=== PATIENT | female | born 1990 | race Caucasian/White ===

== ENCOUNTER 2020-11-13 21:43 | Inpatient (IN) ==
[2020-11-13] MEDS ORDERED: OXYTOCIN 30 UNITS/500 ML BAG IV PRN (22:33)
[2020-11-13 23:06] LABS: Hematocrit (blood only) 40.9 % (37-47); Hemoglobin 13.9 g/dL (12.0-16.0); Mean Corpuscular Hemoglobin 31.4 pg (25-34); Mean Corpuscular Volume 92.3 fL (80-100); Mean Platelet Volume 11.4 fL (7.4-10.4); Platelet Count 164 K/uL (130-400); RDW Coefficient of Variation 13.1 % (11.5-14.5); RDW Standard Deviation 44.1 fL (36.4-46.3); Red Blood Count 4.43 M/uL (4.2-5.4); White Blood Count 19.31 K/uL (4.8-10.8)
--- NOTE | 2020-11-14 00:18 | History & Physical Report ---
Date of Service November 14, 2020 Assessment & Plan (1) Normal labor and delivery: admit, iv, labs, declines arom. plans to try to labor unmedicated. fhts categ 1. anticip . Admission and Anticipated Discharge Date Admission Date: November 13, 2020 History of Present Illness Chief Complaint: labor Primary Care Provider: ALLEGRA Mtz 30yo at 38 6/7wks ega presents to L&D with above cc. Has been having ctx since yesterday but became more regular evening of 11/13/20. No rom, no vb. Called and came for evaluation. Nursing exam on arrival 5cm and regular ctx noted. PNC uncomplicated PNL rh pos, ri, gbs neg, covid neg OBH: g1 GYNH: nl paps no stds Allergies Allergy/AdvReac Type Severity Reaction Status Date / Time cefaclor [From Ceclor] Allergy Unknown Unknown Verified 11/13/20 23:08 Sulfa (Sulfonamide Allergy Unknown Unknown Verified 11/13/20 23:08 Antibiotics) sulfamethoxazole Allergy unknown Verified 11/09/20 11:46 [From Septra] trimethoprim [From Septra] Allergy unknown Verified 11/09/20 11:46 prochlorperazine AdvReac Severe ocular Verified 11/09/20 11:46 [From Compazine] spasms, tardive dyskinesia Home Medications Medication Instructions Recorded Confirmed Type prenat.vits,osman,xnf-[id number] 1 tab PO DAILY 01/05/20 11/13/20 History Patient History Medical History (Updated 11/14/20 @ 00:17 by Velma Dupree MD, FACOG) No pertinent past medical history Surgical History H/O wrist surgery History of repair of congenital cleft palate History of wisdom tooth extraction Family History Father Dyslipidemia Hypertension Musculoskeletal disorder Mother Thyroid disorder Grandmother (Paternal) Cancer Social History (Updated 04/07/20 @ 13:26 by Esther Wright) Smoking Status: Never smoker Hx Alcohol Use: No Hx Substance Use: No Preferred Language: Sierra Leonean Communication Ability: Effective Dress Cap Maker Required: No Beliefs That Will Affect Care: None marital status: spouse marital status details: Vikas (30) [phone] Current Living Situation: Spouse Current Living Situation Comment: townhouse with 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[employer], 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 Other Information That Helps Us Care for You: No Feels Safe at Home: Yes Safety Concerns: Feels Safe At This Time Dental Care, Regularly: Yes Physical Activity Frequency: 3-4 Times per Week Seatbelt Use: always Sunscreen Use: Yes Assistive Devices: None Physical Exam Constitutional: WD/WN, vitals as above Respiratory: normal respiratory effort, lungs clear to auscultation Cardiovascular: Rate/Rhythm: regular rate and regular rhythm Gastrointestinal (Abdomen): soft gravid nt Musculoskeletal: no edema nontender calves Neurologic: grossly normal Psychiatric: A+Ox3, euthymic affect Genitourinary: Manual OB Exam: + cervical dilation (5cm bulging membranes per nurse) OB Exam Monitor Tracing: + external FHT monitor used (145 mod variability), + external uterine monitor used (q2-4), + category I and + normal FHT variability Results & Data ([facility]) Vital Signs (Past 12 Hours) Vital Signs Temp Pulse Resp BP 11/13/20 23:11 96 H 132/70 11/13/20 22:05 97.9 F 18 11/13/20 22:01 97.9 F 98 H 18 131/85 Coding Level of Care Code None Diagnoses Normal labor and delivery O80
--- NOTE | 2020-11-14 04:06 | Labor Progress Brief Note ---
Date of Service November 14, 2020 Subjective Reason For Note: Routine Evaluation desires arom Assessment & Plan (1) Normal labor and delivery: good cx change. fhts categ 1. reviewed plan again, will need to recline for delivery of head and shoulder. Admission and Anticipated Discharge Date Admission Date: November 13, 2020 Physical Exam Constitutional: WD/WN, vitals as above Genitourinary: Manual OB Exam: + cervical dilation 8 cm, + cervical effacement 100%, + station 0 and + amniotic fluid (AROM) meconium OB Exam Monitor Tracing: + external FHT monitor used (140 mod variability), + external uterine monitor used (q6), + category I and + normal FHT variability Results & Data ([facility]) Vital Signs (Past 12 Hours) Vital Signs Temp Pulse Resp BP 11/14/20 02:00 98.2 F 18 11/14/20 00:46 18 11/14/20 00:45 92 H 137/71 11/13/20 23:11 96 H 132/70 11/13/20 22:05 97.9 F 18 11/13/20 22:01 97.9 F 98 H 18 131/85 Coding Level of Care Code None Diagnoses Normal labor and delivery O80
--- NOTE | 2020-11-14 08:09 | Labor Progress Brief Note ---
Date of Service November 14, 2020 Subjective Reason For Note: Routine Evaluation breathing with ctx. in br with nose bleed. Assessment & Plan (1) Normal labor and delivery: no significant change. will need to consider pitocin. fhts categ 1. Admission and Anticipated Discharge Date Admission Date: November 13, 2020 Physical Exam Constitutional: WD/WN, vitals as above Genitourinary: Manual OB Exam: + cervical dilation (8), + cervical effacement 100% and + station 0 OB Exam Monitor Tracing: + external FHT monitor used, + external uterine monitor used (q 3), + category I and + normal FHT variability Results & Data ([facility]) Vital Signs (Past 12 Hours) Vital Signs Temp Pulse Resp BP 11/14/20 07:53 98.2 F 91 H 16 123/61 11/14/20 05:56 98.2 F 99 H 18 135/70 11/14/20 04:03 113 H 131/68 11/14/20 04:02 98.2 F 11/14/20 02:00 98.2 F 18 11/14/20 00:46 18 11/14/20 00:45 92 H 137/71 11/13/20 23:11 96 H 132/70 11/13/20 22:05 97.9 F 18 11/13/20 22:01 97.9 F 98 H 18 131/85 Coding Level of Care Code None Diagnoses Normal labor and delivery O80
--- NOTE | 2020-11-14 09:06 | Labor Progress Brief Note ---
Date of Service November 14, 2020 Subjective Feeling contractions, breathing through them. FHT Cat 1 [place]co Q 4-5 Reviewed plan, questions answered. Continue labor. Assessment & Plan Admission and Anticipated Discharge Date Admission Date: November 13, 2020 Results & Data ([facility]) Vital Signs (Past 12 Hours) Vital Signs Temp Pulse Resp BP 11/14/20 07:53 36.8 C 91 H 16 123/61 11/14/20 05:56 36.8 C 99 H 18 135/70 11/14/20 04:03 113 H 131/68 11/14/20 04:02 36.8 C 11/14/20 02:00 36.8 C 18 11/14/20 00:46 18 11/14/20 00:45 92 H 137/71 11/13/20 23:11 96 H 132/70 11/13/20 22:05 36.6 C 18 11/13/20 22:01 36.6 C 98 H 18 131/85 Coding Level of Care Code None
[2020-11-14] MEDS: LACTATED RINGER'S 1,000 ML IV PRN ×2 (11:14→13:18)
--- NOTE | 2020-11-14 11:16 | Labor Progress Brief Note ---
Date of Service November 14, 2020 Subjective Uncomfortable, asking for epidural. Feeling pain with contractions. FHT Cat 1 Brinson Q 4 SVE 9/100/+1 Will get epidural, will potentially need pitocin if ctx space further after epidural. Assessment & Plan Admission and Anticipated Discharge Date Admission Date: November 13, 2020 Results & Data ([facility]) Vital Signs (Past 12 Hours) Vital Signs Temp Pulse Resp BP 11/14/20 10:23 36.8 C 101 H 20 127/63 11/14/20 07:53 36.8 C 91 H 16 123/61 11/14/20 05:56 36.8 C 99 H 18 135/70 11/14/20 04:03 113 H 131/68 11/14/20 04:02 36.8 C 11/14/20 02:00 36.8 C 18 11/14/20 00:46 18 11/14/20 00:45 92 H 137/71 Coding Level of Care Code None
[2020-11-14] MEDS ORDERED: SODIUM CHLORIDE 0.9% INJ 10 ML VIAL ONE (11:19)
[2020-11-14] MEDS ORDERED: BUPIVACAINE 0.25% 30 ML VIAL ONE (11:19)
[2020-11-14] MEDS ORDERED: ePHEDrine sulfate 50 MG/ML AMP ONE (11:19)
[2020-11-14] MEDS ORDERED: fentaNYL citrate 100 MCG/2 ML VIAL ONE (11:20)
[2020-11-14] MEDS ORDERED: fentaNYL 2MCG/ML ROPIVACAINE 1.25MG/ML 100 ML BAG EPI ONE (11:20)
[2020-11-14] MEDS ORDERED: diphenhydrAMINE 50 MG/ML VIAL IV PRN (12:11)
[2020-11-14] MEDS ORDERED: NALOXONE HCL 0.4 MG/1 ML VIAL/CARP IV PRN (12:11)
[2020-11-14] MEDS ORDERED: NALOXONE HCL 1 MG in SODIUM CHLORIDE 0.9% 1000ML 1,000 ML IV PRN (12:11)
[2020-11-14] MEDS ORDERED: fentaNYL 2MCG/ML ROPIVACAINE 1.25MG/ML 100 ML BAG EPI PRN (12:11)
[2020-11-14] MEDS ORDERED: ePHEDrine sulfate 50 MG/ML AMP IV PRN (12:11)
[2020-11-14] MEDS ORDERED: ONDANSETRON INJ 2 MG/ML 2 ML VIAL IV PRN (12:11)
--- NOTE | 2020-11-14 12:13 | Anesthesiology Consultation ---
Date of Service November 14, 2020 Assessment & Plan (1) Encounter for pre-operative examination: Chart Review Chart Review: Acceptable Risk for Surgery and Patient NOT seen in Pre Admission Testing Consults Requested none ASA ASA2 Proposed Anesthesia Anesthesia Type: CSE Risk / Benefits Reviewed With: PT / POA / Parent / Guardian, Accepts Plan and Informed Consent Obtained History Height/Weight Height: 5 ft 2 in Weight: 78.471 kg Allergies Allergy/AdvReac Type Severity Reaction Status Date / Time cefaclor [From Ceclor] Allergy Unknown Unknown Verified 11/13/20 23:08 Sulfa (Sulfonamide Allergy Unknown Unknown Verified 11/13/20 23:08 Antibiotics) sulfamethoxazole Allergy unknown Verified 11/09/20 11:46 [From Septra] trimethoprim [From Septra] Allergy unknown Verified 11/09/20 11:46 prochlorperazine AdvReac Severe ocular Verified 11/09/20 11:46 [From Compazine] spasms, tardive dyskinesia Medications Home Medications Medication Instructions Recorded Confirmed Last Taken prenat.vits,osman,ndk-dmui-mziwv 1 tab PO DAILY 01/05/20 11/13/20 11/13/20 Active Medications Generic Name Dose Route Start Last Admin Trade Name Freq PRN Reason Stop Dose Admin Lactated Ringer's 1,000 mls @ 125 mls/hr 11/13/20 22:33 11/14/20 11:14 Lr IV 11/15/20 22:32 999 mls/hr .Q8H PRN Administration L&D Protocol Protocol NPO Date Last Intake of Fluids: 11/14/20 Time Last Intake of Fluids: 10:00 Date Last Intake of Solids: 11/13/20 Time Last Intake of Solids: 12:00 Past Medical History Medical History No pertinent past medical history Exercise / Class Metabolic Activity II 4-5 Yardwork/Stairs/Walk up hill Past Family History Family History Father Dyslipidemia Hypertension Musculoskeletal disorder Mother Thyroid disorder Grandmother (Paternal) Cancer Past Surgical History Surgical History H/O wrist surgery History of repair of congenital cleft palate History of wisdom tooth extraction Past Anesthesia History No Hx of Anesthesia Complications and No Family Hx of Anesthesia Complications History of PONV No Hx of PONV and No Hx of Motion Sickness Social History Smoking Status: Never smoker Hx Alcohol Use: No Hx Substance Use: No Physical Exam Vital Signs Last Vital Signs Temp 36.8 C 11/14/20 10:23 Pulse 105 H 11/14/20 12:09 Resp 20 11/14/20 10:23 BP 112/57 L 11/14/20 12:09 Pulse Ox 99 11/14/20 12:05 ENMT Mouth: no dentition abnormality Thyromental Distance: > or= 3.5 Finger Breadths Mallampati Class: II Neck normal visual inspection Respiratory normal respiratory effort Auscultation: lungs clear to auscultation bilaterally Cardiovascular Rate/Rhythm: regular rate and regular rhythm Psychiatric Orientation: alert Testing Laboratory Results 11/13/20 22:45
[2020-11-14] MEDS ORDERED: OXYTOCIN 30 UNITS/500 ML BAG IV PRN ×2 (12:31→16:09)
--- NOTE | 2020-11-14 13:39 | Labor Progress Brief Note ---
Date of Service November 14, 2020 Subjective Comfortable, now sleeping with epidural. FHT Cat 1 Ferney Q 2 Continue labor. Assessment & Plan Admission and Anticipated Discharge Date Admission Date: November 13, 2020 Results & Data ([facility]) Vital Signs (Past 12 Hours) Vital Signs Temp Pulse Resp BP Pulse Ox 11/14/20 13:35 88 97 11/14/20 13:30 85 97 11/14/20 13:29 88 102/56 L 11/14/20 13:25 88 97 11/14/20 13:20 89 98 11/14/20 13:15 83 16 100/56 L 98 11/14/20 13:10 85 98 11/14/20 13:05 85 98 11/14/20 13:00 80 98 11/14/20 12:59 88 106/54 L 11/14/20 12:55 88 99 11/14/20 12:50 87 99 11/14/20 12:45 88 16 113/55 L 98 11/14/20 12:40 88 98 11/14/20 12:35 88 98 11/14/20 12:31 89 110/61 11/14/20 12:30 89 99 11/14/20 12:25 93 H 99 11/14/20 12:20 100 H 98 11/14/20 12:15 108 H 98 11/14/20 12:13 37 C 90 20 101/53 L 11/14/20 12:11 95 H 117/56 L 11/14/20 12:10 98 H 98 11/14/20 12:09 105 H 112/57 L 11/14/20 12:07 117 H 111/55 L 11/14/20 12:05 95 H 117/57 L 99 11/14/20 12:03 101 H 126/57 L 11/14/20 12:01 82 123/64 11/14/20 12:00 90 98 11/14/20 11:59 105 H 136/73 11/14/20 11:56 112 H 137/77 11/14/20 11:55 103 H 99 11/14/20 10:23 36.8 C 101 H 20 127/63 11/14/20 07:53 36.8 C 91 H 16 123/61 11/14/20 05:56 36.8 C 99 H 18 135/70 11/14/20 04:03 113 H 131/68 11/14/20 04:02 36.8 C 11/14/20 02:00 36.8 C 18 Coding Level of Care Code None
--- NOTE | 2020-11-14 15:49 | Delivery Summary ---
Vaginal Delivery Summary Date of Service November 14, 2020 Vaginal Delivery Summary and 1st Degree LAC Vaginal Delivery Summary: Pre-delivery diagnoses: 30yo @ 38 6/7, spontaneous labor Post-delivery diagnoses: same Procedure: spontaneous vaginal delivery, repair of 1st degree perineal laceration Surgeon: Janey Almodovar DO Complications: none Findings: Viable male . Apgars: 8/9. Weight pending, please see nursery records. Estimated blood loss: 300ml Description of delivery: The patient progressed to complete with epidural anesthesia. She then began to push. She spontaneously vaginally delivered a viable from the cephalic presentation. The head delivered in JASMIN position. No nuchal. The anterior shoulder delivered, followed by the posterior shoulder, followed by the body. The baby was placed on mother's abdomen and a spontaneous cry was heard. Delayed cord clamping was employed, and the cord was doubly clamped and cut. Cord blood was obtained. The placenta was delivered spontaneously intact with a 3-vessel cord. The uterus and vagina were swept of clots and debris. IV pitocin was given. The uterus became firm. The cervix, vagina, and perineum were inspected and a 1st degree perineal laceration noted and repaired with 3-0 Vicryl in standard fashion. Excellent hemostasis was observed. The mother and baby are recovering in stable and good condition in the room. Sponge and instrument counts were correct x 2. Janey Almodovar DO [facility] Vaginal Delivery Charge Vaginal Delivery Codes: 83036 global code for the antepartum, delivery, and p ost- Delivery Type Details: and 1st Degree LAC
[2020-11-14] MEDS ORDERED: ACETAMINOPHEN 325 MG TAB PO PRN (16:09)
[2020-11-14] MEDS ORDERED: SUPERCREAM 0.870% 15 GM JAR EXT PRN (16:09)
[2020-11-14] MEDS ORDERED: HYDROCORTISONE ACETATE 25 MG SUPP PR PRN (16:09)
[2020-11-14] MEDS ORDERED: bisacodyL 10 MG SUPP PR PRN (16:09)
[2020-11-14] MEDS ORDERED: DIPHTHERIA/TETANUS/PERTUSSIS 0.5 ML SYR/VIAL IM ONE (16:09)
[2020-11-14] MEDS ORDERED: BENZOCAINE 20% AER SPR 82.5 GM CAN EXT PRN (16:09)
[2020-11-14] MEDS ORDERED: oxyCODONE/ACETAMINOPHEN 5mg/325mg TAB PO PRN (16:09)
--- NOTE | 2020-11-14 17:10 | Anesthesia Procedure Note ---
Date of Service November 14, 2020 Anesthesia Post Epidural Note Vital Signs Vital Signs: Temp Pulse Resp BP Pulse Ox 36.6 C 130 H 16 133/72 98 11/14/20 15:44 11/14/20 16:59 11/14/20 16:45 11/14/20 16:59 11/14/20 15:40 Pain Intensity Abdomen: Pain Intensity: 0 Notes Mental Status: alert / awake / arousable Nausea / Vomiting: adequately controlled Pain: adequately controlled Airway Patency, RR, SpO2: stable & adequate BP & HR: stable & adequate Hydration State: stable & adequate Neuraxial Anesthesia: was administered and sensory block is resolving Anesthetic Complications: no major complications apparent and Pt Satisfied with anesthetic care Epidural: Removed without complications and With tip intact
[2020-11-14] MEDS: IBUPROFEN 600 MG TAB PO PRN (18:41)
[2020-11-14] MEDS: DOCUSATE SODIUM 100 MG CAP PO SCH (21:19)
[2020-11-15] MEDS: IBUPROFEN 600 MG TAB PO PRN ×5 (02:48→20:53)
[2020-11-15 06:27] LABS: Hematocrit (blood only) 36.8 % (37-47); Hemoglobin 12.8 g/dL (12.0-16.0)
--- NOTE | 2020-11-15 08:18 | Obstetrical Progress Note ---
Date of Service <Adelina Wheeler DO - Last Filed: 11/15/20 08:18> November 15, 2020 Assessment & Plan <Adelina Wheeler DO - Last Filed: 11/15/20 08:18> (1) state: PPD #1 - PNL: Rh pos, RI, GBS neg, COVID neg - Feels well today. Eating well, voiding well, ambulating well. - Pain well controlled with ibuprofen 600mg Q4H PRN - Routine care -- OOB, ambulation, diet progression as tolerated - After discharge will have 6 week follow-up with Dr. Almodovar. Subjective <Adelina Wheeler DO - Last Filed: 11/15/20 08:18> Kayla Winston is a 30 y/o female who is PPD #1 following spontaneous vaginal delivery at 38+6 weeks. She reports feeling well overall this morning. Mild abdominal cramping and 4/10 pain well managed on analgesics. Voiding wihtout dysuria. Tolerating meals overnight without difficulty, nausea, or vomiting. Patient has been able to ambulate some. She is passing gas. Has persistent lochia with some improvement this morning. Currently . Review of Systems Denies fever or chills. Denies shortness of breath or cough. Denies chest pain. Denies breast pain. Denies dysuria. Denies leg pain or leg swelling. Denies headache or changes in vision. Physical Exam <Adelina Wheeler DO - Last Filed: 11/15/20 08:18> General: Alert, oriented. No acute distress. Cardiac: Regular rate and rhythm. No murmurs. Respiratory: Clear to auscultation bilaterally a/p, no wheezes/rales/rhonchi. No increased work of breathing. Symmetrical chest rise. No respiratory distress. Abdomen: Soft, nontender, nondistended. Bowel sounds present. Uterus: Uterine fundus firm, palpable at umbilicus. Lower Extremities: No lower extremity edema or swelling. No deep calf pain. Liana's negative bilaterally. Results & Data ([facility]) <Adelina Wheeler DO - Last Filed: 11/15/20 08:18> Vital Signs (Past 12 Hours) Vital Signs Temp Pulse Resp BP 11/15/20 04:40 36.7 C 97 H 20 116/73 11/14/20 23:05 37.1 C 106 H 20 115/75 11/14/20 20:40 37.2 C 102 H 18 131/82 Laboratory Results 11/15/20 Range/Units 06:05 Hgb 12.8 (12.0-16.0) g/dL Hct 36.8 L (37-47) % <Janey Almodovar DO - Last Filed: 11/15/20 08:20> Co-Signing Physician Notes Resident Physician Supervision Note: I was present with Dr. Wheeler during the history and exam. I discussed the case with the resident and agree with the findings and plan as documented in the note. Any exceptions or clarifications are listed here: PPD#1 doing well, no concerns. Documented By: Janey Almodovar DO Resident Activity Tracking <Adelina Wheeler DO - Last Filed: 11/15/20 08:18> Resident Involvement: Resident Care Provided Care Provided: OB Delivery
[2020-11-15] MEDS: DOCUSATE SODIUM 100 MG CAP PO SCH ×2 (08:47→20:53)
[2020-11-15] MEDS: PRENATAL VITAMIN 1 TAB PO SCH (08:47)
[2020-11-15] MEDS ORDERED: bisacodyL 5 MG TABEC PO SCH (20:00)
[2020-11-16] MEDS: IBUPROFEN 600 MG TAB PO PRN ×3 (00:50→08:36)
--- NOTE | 2020-11-16 07:29 | Obstetrical Progress Note ---
Date of Service <Adelina Wheeler DO - Last Filed: 11/16/20 07:29> November 16, 2020 Assessment & Plan <Adelina Wheeler DO - Last Filed: 11/16/20 07:29> (1) state: PPD #2 - PNL: Rh pos, RI, GBS neg, COVID neg - Feels well today. Eating well, voiding well, ambulating well. - Pain well controlled with ibuprofen 600mg Q4H PRN - Routine care -- OOB, ambulation, diet progression as tolerated - After discharge will have 6 week follow-up with Dr. Almodovar. - Plan for d/c home today. Subjective <Adelina Wheeler DO - Last Filed: 11/16/20 07:29> Kayla Winston is a 30 y/o female who is PPD #2 following spontaneous vaginal delivery at 38+6 weeks. She reports feeling well overall this morning. Minimal abdominal cramping and 0/10 pain well managed on analgesics. Voiding without dysuria. Tolerating meals overnight without difficulty, nausea, or vomiting. Patient has been able to ambulate some. She is passing gas. Has persis tent lochia with some improvement this morning. Currently . Review of Systems Denies fever or chills. Denies shortness of breath or cough. Denies chest pain. Denies breast pain. Denies dysuria. Denies leg pain or leg swelling. Denies headache or changes in vision. Physical Exam <Adelina Wheeler DO - Last Filed: 11/16/20 07:29> General: Alert, oriented. No acute distress. Cardiac: Regular rate and rhythm. No murmurs. Respiratory: Clear to auscultation bilaterally a/p, no wheezes/rales/rhonchi. No increased work of breathing. Symmetrical chest rise. No respiratory distress. Abdomen: Soft, nontender, nondistended. Bowel sounds present. Uterus: Uterine fundus firm, palpable at umbilicus. Lower Extremities: No lower extremity edema or swelling. No deep calf pain. Liana's negative bilaterally. <Juani Dee MD, FACOG - Last Filed: 11/16/20 09:42> Co-Signing Physician Notes Resident Physician Supervision Note: I interviewed and examined the patient. Discussed with Dr. Wheeler and agree with findings and plan as documented in the note. Any exceptions or clarifications are listed here: [None] Documented By: Juani Dee MD, FACOG Resident Activity Tracking <Adelina Wheeler, DO - Last Filed: 11/16/20 07:29> Resident Involvement: Resident Care Provided Care Provided: OB Delivery
[2020-11-16] MEDS: DOCUSATE SODIUM 100 MG CAP PO SCH (08:36)
[2020-11-16] MEDS: PRENATAL VITAMIN 1 TAB PO SCH (08:36)
== END 2020-11-16 12:05 | disposition home or self-care (01) | DRG 807 ==
LOC: OPB 21:43 → 4S1 21:44 → 4S2 11-14 19:18

== ENCOUNTER 2022-07-11 10:29 | Inpatient (IN) ==
[2022-07-11] MEDS ORDERED: OXYTOCIN 30 UNITS/500 ML BAG IV PRN ×2 (10:47→13:54)
[2022-07-11] MEDS ORDERED: LIDOCAINE 1% LOCAL 20 ML VIAL INFIL PRN (10:47)
[2022-07-11] MEDS ORDERED: PENICILLIN G POTASSIUM 6 MU in DEXTROSE 5% 250 ML IV STA (10:52)
[2022-07-11] MEDS: LACTATED RINGER'S 1,000 ML IV PRN ×2 (10:53→11:51)
--- NOTE | 2022-07-11 10:53 | History & Physical Report ---
Date of Service July 11, 2022 Assessment & Plan (1) : (2) GBS (group B Streptococcus carrier), +RV culture, currently : Plan 32 yo at 39 5/7 wga presents in labor, suspected SROM VSS Fetus cat 1 Labor - manage expectantly GBS+, start pcn. ceclor allergy from childhood but reports having tolerated amoxicillin in past Desires epidural History of Present Illness Chief Complaint: labor, leaking Primary Care Provider: ALLEGRA Mtz 32 yo at 39 5/7 wga presents w/ ctx increasing in frequency and intensity since 4am, noq 2-3. Had big gush of fluid and still leaking since PNI: Mild asthma GBS+ Past [employer] Hx: G1 2020 at 38 wks G2 current irreg cycles no hx STIs 12/2020 neg cyto Allergies Allergy/AdvReac Type Severity Reaction Status Date / Time cefaclor [From Ceclor] Allergy Unknown Unknown Verified 07/05/22 06:05 Sulfa (Sulfonamide Allergy Unknown Unknown Verified 07/05/22 06:05 Antibiotics) sulfamethoxazole Allergy unknown Verified 07/05/22 06:05 [From Septra] trimethoprim [From Septra] Allergy unknown Verified 07/05/22 06:05 prochlorperazine AdvReac Severe ocular Verified 07/05/22 06:05 [From Compazine] spasms, tardive dyskinesia Home Medications Medication Instructions Recorded Confirmed Type prenat.vits,osman,fkq-fgfi-tlypx 1 tab PO DAILY 11/26/21 07/05/22 History albuterol sulfate 2.5 mg/3 mL 2.5 mg (3 mL) inhalation QID PRN 04/24/22 07/05/22 Rx (0.083 %) solution for nebulization shortness of breath or wheezing #180 mL nebulizer accessories #1 ea 04/24/22 07/05/22 Rx Flovent HFA 110 mcg/actuation 1 puff inhalation BID #12 grams 05/10/22 07/05/22 Rx aerosol inhaler (fluticasone propionate) albuterol sulfate 90 mcg/actuation 1 inh inhalation QID #6.7 grams 05/10/22 07/05/22 Rx aerosol inhaler Patient History Medical History No pertinent past medical history Surgical History H/O wrist surgery History of repair of congenital cleft palate History of wisdom tooth extraction Family History Father Dyslipidemia Hypertension Musculoskeletal disorder Mother Thyroid disorder Grandmother (Paternal) Cancer Social History Smoking Status: Never smoker Hx Alcohol Use: No Hx Substance Use: No Preferred Language: Slovenian Communication Ability: Effective Fulfillment Mail Clerk Required: No Beliefs That Will Affect Care: None marital status: spouse marital status details: Vikas (32) [phone] Current Living Situation: Spouse Current Living Situation Comment: lives with spouse and son, 1 dog. 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 Feels Safe at Home: Yes Dental Care, Regularly: Yes Physical Activity Frequency: 3-4 Times per Week Seatbelt Use: always Sunscreen Use: Yes Assistive Devices: None Physical Exam Genitourinary: OB Exam Abdomen: + vertex Manual OB Exam: + cervical dilation (4-5), + cervical effacement 80% and + station -2 OB Exam Monitor Tracing: + external FHT monitor used, + external uterine monitor used (q5) and + category I (130/mod/+accel/-decel) No membranes palpated at this time Results & Data ([facility]) Vital Signs (Past 12 Hours) Vital Signs Pulse BP 07/11/22 10:40 62 129/86 Laboratory Results OB Labs: Blood Type A Positive 12/03/21 Antibody Screen NEGATIVE 12/03/21 Hemoglobin 11.7 g/dl (12.0-16.0) L 04/17/22 Hematocrit 35.0 % (34.1-44.9) 04/17/22 Mean Corpuscular Volume 89.2 fL (80-100) 12/03/21 Platelet Count 249 K/uL (130-400) 12/03/21 Rubella IgG Antibody Immune (Immune) 12/03/21 Rapid Plasma Reagin Nonreactive (Nonreactive) 12/03/21 Hepatitis B Surface Antigen Neg (Neg) 04/18/20 Hepatitis B Surface Antigen. NON-REACTIVE (NON-REACTIVE) 12/03/21 Hepatitis C Antibody (EIA) NON-REACTIVE (NON-REACTIVE) 12/03/21 HIV (1&2) Ab and P24 Ag, 4th Gener Neg (Neg) 04/18/20 HIV (1&2) Ag and Ab Confirmation NON-REACTIVE (NON-REACTIVE) 12/03/21 Glucose 1 Hour 50 gm Load 117 mg/dl (70-130) 04/17/22 OB Optional Labs: Chlamydia trachomatis RNA NOT DETECTED (NOT DETECTED) 12/03/21 Neisseria gonorrhoeae RNA NOT DETECTED (NOT DETECTED) 12/03/21 Labs Reviewed: CF/SMA negative in prior . (05/03/20) low risk cfdna Hep C - nonreactive 12/03/21 Hep B - nonreactive 12/03/21 HIV - nonreactive 12/03/21 GBS+ Diagnostic Findings ant plac Coding Level of Care Code None Diagnoses Z34.90 GBS (group B Streptococcus carrier), +RV culture, currently O99.820
[2022-07-11] MEDS ORDERED: ePHEDrine sulfate 50 MG/ML AMP ONE (11:27)
[2022-07-11] MEDS ORDERED: SODIUM CHLORIDE 0.9% INJ 10 ML VIAL ONE (11:27)
[2022-07-11] MEDS ORDERED: fentaNYL 2MCG/ML ROPIVACAINE 1.25MG/ML 100 ML BAG EPI ONE (11:27)
[2022-07-11] MEDS ORDERED: BUPIVACAINE 0.25% 30 ML VIAL ONE (11:27)
[2022-07-11] MEDS ORDERED: LIDOCAINE 2%/EPINEPHRINE 1:200,000 20 ML SDV ONE (11:27)
[2022-07-11] MEDS ORDERED: fentaNYL citrate 100 MCG/2 ML VIAL ONE (11:27)
[2022-07-11 11:40] LABS: Hematocrit (blood only) 39.9 % (34.1-44.9); Hemoglobin 13.8 g/dl (12.0-16.0); Mean Corpuscular Hemoglobin 31.9 pg (25.0-34.0); Mean Corpuscular Hgb Conc 34.6 g/dL (32.0-36.0); Mean Corpuscular Volume 92.4 fL (80.0-100.0); Mean Platelet Volume 10.9 fL (9.4-12.3); Platelet Count 158 K/uL (130-400); RDW Coefficient of Variation 12.9 % (11.5-14.5); RDW Standard Deviation 43.8 fL (36.4-46.3); Red Blood Count 4.32 M/uL (3.93-5.22); White Blood Count 13.53 K/ul (4.8-10.8)
[2022-07-11] MEDS ORDERED: NALBUPHINE HCL INJ 10 MG/ML AMP IV PRN (11:52)
[2022-07-11] MEDS ORDERED: NALOXONE HCL 0.4 MG/1 ML VIAL/CARP IV PRN (11:52)
[2022-07-11] MEDS ORDERED: NALOXONE HCL 1 MG in SODIUM CHLORIDE 0.9% 1000ML 1,000 ML IV PRN (11:52)
[2022-07-11] MEDS ORDERED: fentaNYL 2MCG/ML ROPIVACAINE 1.25MG/ML 100 ML BAG EPI PRN (11:52)
[2022-07-11] MEDS ORDERED: ONDANSETRON INJ 2 MG/ML 2 ML VIAL IV PRN (11:52)
[2022-07-11] MEDS ORDERED: ePHEDrine sulfate 50 MG/ML AMP IV PRN (11:52)
[2022-07-11] MEDS ORDERED: diphenhydrAMINE 50 MG/ML VIAL IV PRN (11:52)
--- NOTE | 2022-07-11 11:55 | Anesthesiology Consultation ---
Date of Service July 11, 2022 Assessment & Plan Chart Review Chart Review: Patient NOT seen in Pre Admission Testing and Acceptable Risk for Labor Epidural Consults Requested none ASA ASA2 Proposed Anesthesia Anesthesia Type: Labor Epidural and CSE Risk / Benefits Reviewed With: PT / POA / Parent / Guardian, Accepts Plan and Informed Consent Obtained History Height/Weight Height: 5 ft 2 in Weight: 78.018 kg Allergies Allergy/AdvReac Type Severity Reaction Status Date / Time cefaclor [From Ceclor] Allergy Unknown Unknown Verified 07/05/22 06:05 Sulfa (Sulfonamide Allergy Unknown Unknown Verified 07/05/22 06:05 Antibiotics) sulfamethoxazole Allergy unknown Verified 07/05/22 06:05 [From Septra] trimethoprim [From Septra] Allergy unknown Verified 07/05/22 06:05 prochlorperazine AdvReac Severe ocular Verified 07/05/22 06:05 [From Compazine] spasms, tardive dyskinesia Medications Home Medications Medication Instructions Recorded Confirmed Last Taken prenat.vits,osman,rig-azsj-ufzwe 1 tab PO DAILY 11/26/21 07/05/22 Unknown albuterol sulfate 2.5 mg/3 mL 2.5 mg (3 mL) inhalation QID PRN 04/24/22 07/05/22 Unknown (0.083 %) solution for nebulization shortness of breath or wheezing #180 mL nebulizer accessories #1 ea 04/24/22 07/05/22 Unknown Flovent HFA 110 mcg/actuation 1 puff inhalation BID #12 grams 05/10/22 07/05/22 Unknown aerosol inhaler (fluticasone propionate) albuterol sulfate 90 mcg/actuation 1 inh inhalation QID #6.7 grams 05/10/22 07/05/22 Unknown aerosol inhaler Active Medications Generic Name Dose Route Start Last Admin Trade Name Freq PRN Reason Stop Dose Admin Lactated Ringer's 1,000 mls @ 125 mls/hr 07/11/22 10:47 07/11/22 11:51 Lr IV 07/13/22 10:46 125 mls/hr .Q8H PRN Administration L&D Protocol Protocol NPO Date Last Intake of Fluids: 07/11/22 Time Last Intake of Fluids: 10:00 Date Last Intake of Solids: 07/11/22 Time Last Intake of Solids: 07:00 Past Medical History Medical History Reactive airway disease since having Covid 19 Exercise / Class Metabolic Activity II 4-5 Yardwork/Stairs/Walk up hill Past Family History Family History Father Dyslipidemia Hypertension Musculoskeletal disorder Mother Thyroid disorder Grandmother (Paternal) Cancer Past Surgical History Surgical History H/O wrist surgery History of repair of congenital cleft palate History of wisdom tooth extraction Past Anesthesia History No Hx of Anesthesia Complications and No Family Hx of Anesthesia Complications History of PONV No Hx of PONV and No Hx of Motion Sickness Social History Smoking Status: Never smoker Hx Alcohol Use: No Hx Substance Use: No Review of Systems no chest pain or sob Physical Exam Vital Signs Last Vital Signs Temp 36.4 C L 07/11/22 10:37 Pulse 82 07/11/22 11:50 Resp 20 07/11/22 10:37 BP 129/86 07/11/22 10:40 Pulse Ox 98 07/11/22 11:50 ENMT Mouth: no TMJ abnormality Thyromental Distance: > or= 3.5 Finger Breadths Mallampati Class: II Neck normal visual inspection Respiratory normal respiratory effort Auscultation: lungs clear to auscultation bilaterally Cardiovascular Rate/Rhythm: regular rate and regular rhythm Musculoskeletal Spine: normal cervical ROM Neurologic moves all extremities Psychiatric Orientation: alert and oriented x 3 Testing Laboratory Results 07/11/22 11:22
--- NOTE | 2022-07-11 13:23 | Delivery Summary ---
Vaginal Delivery Summary Date of Service July 11, 2022 Vaginal Delivery Summary [facility] PREOPERATIVE DIAGNOSIS: 1. Single intrauterine at 39 5/7 wga 2. Labor 3. GBS+ POSTOPERATIVE DIAGNOSIS: 1. Single intrauterine at 39 5/7 wga 2. Labor 3. GBS+ 4. Delivered PROCEDURE: 1. Normal spontaneous vaginal delivery. SURGEON: Rimma Elliott MD ANESTHESIA: Epidural. ESTIMATED BLOOD LOSS: 300 mL FLUIDS: Continuous LR. URINE OUTPUT: None. COMPLICATIONS: None. CONDITION: Stable. INDICATIONS: 32 you at 39 5/7 wga presented with contractions increasing in frequency and intensity and SROM. She was started on penicillin for GBS ppx and received an epidural for pain control. She progressed spontaneously to complete and desired to push. FINDINGS: A viable female infant, weight pending with Apgars of 8 and 9 at 1 and 5 minutes respectively. SPECIMEN: Cord blood OPERATIVE REPORT: The patient progressed to 10 cm, 100% effaced and +2 station, pushed over intact perineum with anesthesia to deliver a viable female infant, weight and Apgars as above. Head of delivered in JASMIN position. No nuchal cord was present. Body and shoulders were delivered without difficulty. was delivered to maternal abdomen and nursing staff. Delayed cord clamping was performed for 60 seconds. Cord was clamped and cut. Cord blood was obtained. Placenta delivered spontaneously intact with 3-vessel cord. IV oxytocin and fundal massage were given for excellent hemostasis. Vagina, cervix, perineum, and placenta were inspected. No lacerations were noted. Sponge and needle counts correct x2. No sponges were left behind. Mother and stable in immediate period. [facility] [place] Vaginal Delivery Charge Vaginal Delivery Codes: 91538 global code for the antepartum, delivery, and post- Delivery Type Details: [facility]
[2022-07-11] MEDS ORDERED: HYDROCORTISONE ACETATE 25 MG SUPP PR PRN (13:54)
[2022-07-11] MEDS ORDERED: ACETAMINOPHEN 325 MG TAB PO PRN (13:54)
[2022-07-11] MEDS ORDERED: BENZOCAINE 20% AER SPR 82.5 GM CAN EXT PRN (13:54)
[2022-07-11] MEDS ORDERED: ALBUTEROL 0.083% NEBU SOLN 3 ML VIAL INH PRN (13:54)
[2022-07-11] MEDS ORDERED: DIPHTHERIA/TETANUS/PERTUSSIS 0.5 ML SYR/VIAL IM ONE (13:54)
[2022-07-11] MEDS ORDERED: bisacodyL 10 MG SUPP PR PRN (13:54)
[2022-07-11] MEDS ORDERED: PENICILLIN G POTASSIUM 3 MU in DEXTROSE 5% 100 ML IV PRN (15:00)
--- NOTE | 2022-07-11 16:15 | Anesthesia Procedure Note ---
Date of Service July 11, 2022 Anesthesia Post Epidural Note Vital Signs Vital Signs: Temp Pulse Resp BP Pulse Ox 36.8 C 77 20 114/61 94 07/11/22 12:31 07/11/22 15:31 07/11/22 15:15 07/11/22 15:31 07/11/22 13:10 Notes Mental Status: alert / awake / arousable and participated in evaluation Nausea / Vomiting: adequately controlled Pain: adequately controlled Airway Patency, RR, SpO2: stable & adequate BP & HR: stable & adequate Hydration State: stable & adequate Neuraxial Anesthesia: was administered and sensory block is resolving Anesthetic Complications: no major complications apparent and Pt Satisfied with anesthetic care Epidural: Removed without complications and With tip intact
[2022-07-11] MEDS: IBUPROFEN 600 MG TAB PO PRN ×2 (18:05→23:00)
[2022-07-11] MEDS ORDERED: FLUTICASONE HFA 110MCG INHALER INH SCH (19:00)
[2022-07-11] MEDS ORDERED: ALBUTEROL HFA 8 GM INHALER INH SCH (19:00)
[2022-07-11] MEDS: DOCUSATE SODIUM 100 MG CAP PO SCH (21:05)
--- NOTE | 2022-07-12 04:36 | Obstetrical Progress Note ---
Date of Service July 12, 2022 Assessment & Plan (1) care following vaginal delivery: Plan - Overall, feeling well and eating well today - Infant feeding going well without concern - Urinating and stooling appropriately - Ambulating well - Pain controlled w/ Ibuprofen - Hgb 13.5 on 07/01 - Vitals stable - Routine PP care progressing well - GBS +, received PCN x1 - Anticipate discharge tomorrow - Recommending f/u outpatient in 6 weeks Admission and Anticipated Discharge Date Admission Date: July 11, 2022 Supervising Physician Co-Signing Physician Notes Resident Physician Supervision Note: I interviewed and examined the patient. Discussed with Dr. Cornelius and agree with findings and plan as documented in the note. Any exceptions or clarifications are listed here: PP1 s/p , doing well. VSS, exam benign and wnl. May want to go home today, not sure yet. Ok to do so if desires Documented By: Rimma Elliott MD Subjective Patient is a 32 y/o female who is PPD #1 following vaginal delivery at 39w5d. She reports feeling well overall this morning. - Ambulation - well throughout room - Voiding/Garcia - independent voids, no dysuria or pressure - Gas/Stool - passing gas, no bowel movement - Diet - regular, no nausea or emesis - Lochia - diminishing, light amount - Infant Feeding Type - breast feeding - Pain Level - 4/10, controlled with Ibuprofen Review of Systems - Denies fever, chills, sweats - Denies shortness of breath, difficulty breathing, chest pain, palpitations, chest pressure. - Denies breast pain. - Denies dysuria. - Denies headache or changes in vision. Physical Exam Constitutional: General: Alert, oriented. No acute distress. Cardiac: RRR, normal S1/S2, no murmurs/rubs/gallops. Respiratory: Non-labored, CTAB, no wheezes/rales/rhonchi. Symmetric chest rise. Abdomen: Soft, nontender, nondistended. Bowel sounds present. Uterus: Uterine fundus firm, palpable 2 cm below umbilicus. Lower Extremities: No lower extremity edema or swelling. No deep calf pain. Liana's negative bilaterally. Results & Data ([facility]) Vital Signs (Past 12 Hours) Vital Signs Temp Pulse Resp BP Pulse Ox O2 Del Method 07/12/22 02:55 36.7 C 62 18 125/84 07/11/22 23:15 36.9 C 67 18 123/76 07/11/22 19:15 36.4 C L 77 18 112/74 07/11/22 17:25 36.6 C 77 20 110/73 98 Room Air Resident Activity Tracking Resident Involvement: Resident Care Provided Care Provided: OB Delivery
[2022-07-12] MEDS: IBUPROFEN 600 MG TAB PO PRN ×3 (06:51→20:06)
[2022-07-12] MEDS: DOCUSATE SODIUM 100 MG CAP PO SCH ×2 (07:57→20:06)
[2022-07-12] MEDS: PRENATAL VITAMIN 1 TAB PO SCH (07:57)
[2022-07-12] MEDS ORDERED: bisacodyL 5 MG TABEC PO SCH (20:00)
[2022-07-13] MEDS: IBUPROFEN 600 MG TAB PO PRN (05:26)
--- NOTE | 2022-07-13 05:37 | Obstetrical Progress Note ---
Date of Service July 13, 2022 Assessment & Plan (1) care following vaginal delivery: Plan - Overall, feeling well and eating well today - Infant feeding going well without concern - Urinating and passing gas appropriately - Ambulating well in room - Pain controlled w/ Ibuprofen and Tylenol - Hgb 13.5 on 07/11 - Vitals stable and wnl - Routine PP care progressing well - GBS +, received PCN x1 - Anticipate discharge today - Recommending f/u outpatient in 6 weeks Admission and Anticipated Discharge Date Admission Date: July 11, 2022 Supervising Physician Co-Signing Physician Notes Resident Physician Supervision Note: I was present with Dr. Cornelius during the history and exam. I discussed the case with the resident and agree with the findings and plan as documented in the note. Any exceptions or clarifications are listed here: doing well, ready to go home, will plan f/u 6 wk pp check. instructions reviewed. abd ff 2 down nt, nt calves. Documented By: Velma Dupree MD, FACOG Subjective Patient is a 32 y/o female who is PPD #2 following vaginal delivery at 39w5d. She reports feeling well overall this morning and wants to go home. - Ambulation - well throughout room - Voiding/Gacria - independent voids, no dysuria or pressure - Gas/Stool - passing gas, no bowel movement - Diet - regular, no nausea or emesis - Lochia - diminishing, light amount - Feeding Type - breast feeding - Pain Level - 3/10, controlled with Ibuprofen and Tylenol Review of Systems - Denies fever, chills, sweats - Denies shortness of breath, difficulty breathing, chest pain, palpitations, chest pressure. - Denies breast pain. - Denies dysuria. - Denies headache or changes in vision. Physical Exam Physical Exam: General: Alert, oriented. No acute distress. Cardiac: RRR, normal S1/S2, no murmurs/rubs/gallops. Respiratory: Non-labored, CTAB, no wheezes/rales/rhonchi. Symmetric chest rise. Abdomen: Soft, nontender, nondistended. Bowel sounds present. Uterus: Uterine fundus firm, palpable 2 cm below umbilicus. Lower Extremities: No lower extremity edema or swelling. No deep calf pain. Liana's negative bilaterally. Results & Data ([facility]) Vital Signs (Past 12 Hours) Vital Signs Temp Pulse Resp BP Pulse Ox O2 Del Method 07/12/22 23:35 36.7 C 71 18 117/77 96 Room Air Resident Activity Tracking Resident Involvement: Resident Care Provided Care Provided: OB Delivery
[2022-07-13] MEDS: DOCUSATE SODIUM 100 MG CAP PO SCH (08:50)
[2022-07-13] MEDS: PRENATAL VITAMIN 1 TAB PO SCH (08:50)
== END 2022-07-13 12:00 | disposition home or self-care (01) | DRG 807 ==
LOC: OPB 10:29 → 4S1 10:30 → 4E2 17:03